=== PATIENT | female | born 1940 | race Caucasian/White ===

== ENCOUNTER 2022-06-19 09:09 | Outpatient (CLI) | payer MEDICARE | END 2022-06-19 09:10 | disposition home or self-care (01) | LOC: RAD 09:09 | PROVIDERS: ATTEND Internal Medicine Critical Care Medicine | DX: R06.00 Dyspnea, unspecified (principal); J84.9 Interstitial pulmonary disease, unspecified | CPT/HCPCS: 71046 ==

== ENCOUNTER 2023-10-07 16:35 | Inpatient (IN) | payer OTHER ==
[2023-10-07] MEDS ORDERED: Acetaminophen 325 MG TAB PO PRN (23:26)
[2023-10-07] MEDS ORDERED: Ondansetron PF 4 MG/2 ML Vial IVP PRN (23:26)
[2023-10-07] MEDS ORDERED: Labetalol HCl 100 MG/20 ML VIAL SLOW IVP PRN (23:26)
[2023-10-07] MEDS ORDERED: Ipratropium/Albuterol 3 ML NEB EZPAP PRN (23:29)
[2023-10-08] MEDS: cefTRIAXone\\ROCEPHIN 1 GM in Sodium Chloride 0.9% 100 ML IVPB SCH ×2 (00:19→23:39)
[2023-10-08 01:26] VITALS: BMI 22.7
[2023-10-08 05:31] LABS: #Basophils 0.1 thou/uL (0.0-0.2); #Eosinphils 0.1 thou/uL (0.0-0.7); #Monocytes 0.8 thou/uL (0.11-0.59); #Neutrophils 6.6 thou/uL (1.40-6.50); %Basophils 0.6 % (0.0-1.0); %Eosinophils 1.5 % (0.0-10.0); %Lymphocytes 10.1 % (21.0-51.0); %Monocytes 8.9 % (0.0-10.0); %Neutrophils 78.3 % (42.0-75.0); Hematocrit 34.3 % (36.0-47.0); Hemoglobin 10.8 g/dL (12.0-16.0); Mean Corpuscular HGB CONC 31.5 g/dL (32.0-36.0); Mean Corpuscular Hemoglobin 28.9 pg (27.0-31.0); Mean Corpuscular Volume 91.7 fl (78.0-98.0); Platelet Count 202 10x3/uL (130-400); RBC Distribution Width 15.2 % (11.5-14.5); Red Blood Cell (RBC) Count 3.74 mill/uL (4.20-5.40); White Blood Cell (WBC) Count 8.5 10x3/uL (4.8-10.8)
[2023-10-08 05:59] LABS: ALT (SGPT) 38 U/L (8-55); AST (SGOT) 28 U/L (5-34); Alkaline Phosphatase 86 U/L (40-110); Anion Gap 17 mmol/L (10-20); BUN (Urea Nitrogen) 16 mg/dL (9.8-20.1); Bilirubin, Total 0.6 mg/dL (0.2-1.2); Calc. Creatinine Clearance 53 mL/min (70-130); Calcium 9.5 mg/dL (7.8-10.44); Carbon Dioxide 19 mmol/L (23-31); Cardiac Risk 3.4 (Less than 4.5); Chloride 107 mmol/L (98-107); Cholesterol 124 mg/dl (< 200 Desired); Estimated GFR 81; Globulin 2.4 g/dL (2.4-3.5); Glucose 77 mg/dL (83-110); HDL Cholesterol 36 mg/dL (>60 Neg Risk); LDL Cholesterol, Calculated 61 mg/dL; Potassium 3.4 mmol/L (3.5-5.1); Protein, Total 6.4 g/dL (5.8-8.1); Sodium 140 mmol/L (136-145); Triglycerides 134 mg/dL (Less than 150)
[2023-10-08] MEDS ORDERED: FLU VACC QS2023(65UP)/MF59C/PF 60 MCG/0.5 ML SYRINGE IM ONE (09:00)
[2023-10-08] MEDS: dilTIAZem CD 120 MG CAP PO SCH (09:17)
[2023-10-08] MEDS: Aspirin 81 mg Enteric Coated Tablet PO SCH (09:17)
[2023-10-08] MEDS: Atorvastatin Calcium 40 MG TAB PO SCH (20:22)
[2023-10-09 05:32] LABS: #Basophils 0.1 thou/uL (0.0-0.2); #Eosinphils 0.3 thou/uL (0.0-0.7); #Monocytes 0.9 thou/uL (0.11-0.59); #Neutrophils 5.3 thou/uL (1.40-6.50); %Basophils 0.7 % (0.0-1.0); %Eosinophils 3.8 % (0.0-10.0); %Lymphocytes 12.4 % (21.0-51.0); %Monocytes 11.6 % (0.0-10.0); %Neutrophils 71.1 % (42.0-75.0); Hematocrit 36.2 % (36.0-47.0); Hemoglobin 11.7 g/dL (12.0-16.0); Mean Corpuscular HGB CONC 32.3 g/dL (32.0-36.0); Mean Corpuscular Volume 89.8 fl (78.0-98.0); Mean Platelet Volume 11.1 fL (7.4-10.4); Platelet Count 200 10x3/uL (130-400); RBC Distribution Width 15.4 % (11.5-14.5); Red Blood Cell (RBC) Count 4.03 mill/uL (4.20-5.40); White Blood Cell (WBC) Count 7.4 10x3/uL (4.8-10.8)
[2023-10-09 06:27] LABS: Albumin 3.8 g/dL (3.4-4.8); Alkaline Phosphatase 76 U/L (40-110); Anion Gap 13 mmol/L (10-20); Bilirubin, Total 0.5 mg/dL (0.2-1.2); Calc. Creatinine Clearance 47 mL/min (70-130); Calcium 9.1 mg/dL (7.8-10.44); Carbon Dioxide 22 mmol/L (23-31); Chloride 109 mmol/L (98-107); Estimated GFR 70; Globulin 2.4 g/dL (2.4-3.5); Glucose 105 mg/dL (83-110); Potassium 3.3 mmol/L (3.5-5.1); Protein, Total 6.2 g/dL (5.8-8.1); Sodium 141 mmol/L (136-145)
[2023-10-09] MEDS ORDERED: Potassium Bicarbonate/Cit Ac 20 MEQ TAB PO SCH (08:15)
[2023-10-09] MEDS: Aspirin 81 mg Enteric Coated Tablet PO SCH (08:50)
[2023-10-09] MEDS: Clopidogrel Bisulfate 75 MG TAB PO SCH (08:51)
[2023-10-09] MEDS: dilTIAZem CD 120 MG CAP PO SCH (08:51)
[2023-10-09 08:58] LABS: ALT (SGPT) 27 U/L (8-55); AST (SGOT) 19 U/L (5-34); BUN (Urea Nitrogen) 18 mg/dL (9.8-20.1)
[2023-10-09] MEDS ORDERED: Metoprolol Tartrate 25 MG TAB PO SCH (09:00)
[2023-10-09] MEDS ORDERED: Clopidogrel Bisulfate 75 MG TAB PO SCH (09:00)
[2023-10-09] MEDS ORDERED: Iopamidol 370 76% 100 ML VIAL ONE (11:05)
[2023-10-09] MEDS: hydrALAZINE 20 MG/ML VIAL SLOW IVP PRN (20:09)
[2023-10-09] MEDS: Atorvastatin Calcium 40 MG TAB PO SCH (20:16)
[2023-10-10] MEDS: cefTRIAXone\\ROCEPHIN 1 GM in Sodium Chloride 0.9% 100 ML IVPB SCH ×2 (00:20→23:37)
[2023-10-10] MEDS: hydrALAZINE 20 MG/ML VIAL SLOW IVP PRN ×3 (00:21→18:21)
[2023-10-10] MEDS ORDERED: Labetalol HCl 100 MG/20 ML VIAL SLOW IVP PRN (00:36)
[2023-10-10 04:57] LABS: #Basophils 0.1 thou/uL (0.0-0.2); #Eosinphils 0.2 thou/uL (0.0-0.7); #Monocytes 0.8 thou/uL (0.11-0.59); #Neutrophils 8.7 thou/uL (1.40-6.50); %Basophils 0.5 % (0.0-1.0); %Eosinophils 1.9 % (0.0-10.0); %Lymphocytes 5.5 % (21.0-51.0); %Monocytes 7.5 % (0.0-10.0); %Neutrophils 84.3 % (42.0-75.0); Hematocrit 36.8 % (36.0-47.0); Hemoglobin 11.9 g/dL (12.0-16.0); Mean Corpuscular HGB CONC 32.3 g/dL (32.0-36.0); Mean Corpuscular Volume 89.8 fl (78.0-98.0); Mean Platelet Volume 10.4 fL (7.4-10.4); Platelet Count 244 10x3/uL (130-400); RBC Distribution Width 15.6 % (11.5-14.5); White Blood Cell (WBC) Count 10.3 10x3/uL (4.8-10.8)
[2023-10-10 05:37] LABS: ALT (SGPT) 22 U/L (8-55); AST (SGOT) 16 U/L (5-34); Albumin 4.2 g/dL (3.4-4.8); Alkaline Phosphatase 77 U/L (40-110); Anion Gap 15 mmol/L (10-20); BUN (Urea Nitrogen) 19 mg/dL (9.8-20.1); Bilirubin, Total 0.6 mg/dL (0.2-1.2); Calc. Creatinine Clearance 46 mL/min (70-130); Calcium 9.9 mg/dL (7.8-10.44); Carbon Dioxide 22 mmol/L (23-31); Chloride 108 mmol/L (98-107); Estimated GFR 69; Globulin 2.3 g/dL (2.4-3.5); Glucose 122 mg/dL (83-110); Potassium 3.7 mmol/L (3.5-5.1); Protein, Total 6.5 g/dL (5.8-8.1); Sodium 141 mmol/L (136-145)
[2023-10-10] MEDS: Aspirin 81 mg Enteric Coated Tablet PO SCH (08:56)
[2023-10-10] MEDS: Clopidogrel Bisulfate 75 MG TAB PO SCH (08:56)
[2023-10-10] MEDS: dilTIAZem CD 120 MG CAP PO SCH (08:56)
[2023-10-10] MEDS: Metoprolol Tartrate 25 MG TAB PO SCH ×2 (10:29→20:04)
[2023-10-10] MEDS: Losartan 25 MG TAB PO SCH (10:31)
[2023-10-10] MEDS: Ranolazine 500 MG ER.TAB PO SCH ×2 (10:32→20:04)
[2023-10-10] MEDS: Atorvastatin Calcium 40 MG TAB PO SCH (20:04)
[2023-10-11] MEDS: hydrALAZINE 20 MG/ML VIAL SLOW IVP PRN (03:40)
[2023-10-11 03:58] LABS: #Basophils 0.1 thou/uL (0.0-0.2); #Eosinphils 0.5 thou/uL (0.0-0.7); #Neutrophils 7.4 thou/uL (1.40-6.50); %Basophils 0.6 % (0.0-1.0); %Eosinophils 4.5 % (0.0-10.0); %Lymphocytes 9.7 % (21.0-51.0); %Monocytes 10.2 % (0.0-10.0); %Neutrophils 74.7 % (42.0-75.0); Hematocrit 33.4 % (36.0-47.0); Hemoglobin 10.7 g/dL (12.0-16.0); Mean Corpuscular Volume 90.5 fl (78.0-98.0); Mean Platelet Volume 10.6 fL (7.4-10.4); Platelet Count 246 10x3/uL (130-400); RBC Distribution Width 15.9 % (11.5-14.5); Red Blood Cell (RBC) Count 3.69 mill/uL (4.20-5.40); White Blood Cell (WBC) Count 9.9 10x3/uL (4.8-10.8)
[2023-10-11 04:20] LABS: Anion Gap 15 mmol/L (10-20); BUN (Urea Nitrogen) 22 mg/dL (9.8-20.1); Calc. Creatinine Clearance 49 mL/min (70-130); Calcium 9.5 mg/dL (7.8-10.44); Carbon Dioxide 23 mmol/L (23-31); Chloride 108 mmol/L (98-107); Estimated GFR 74; Glucose 107 mg/dL (83-110); Potassium 3.7 mmol/L (3.5-5.1); Sodium 142 mmol/L (136-145)
[2023-10-11] MEDS: dilTIAZem CD 120 MG CAP PO SCH ×2 (09:26→20:05)
[2023-10-11] MEDS: Losartan 25 MG TAB PO SCH (09:26)
[2023-10-11] MEDS: Metoprolol Tartrate 25 MG TAB PO SCH ×2 (09:27→20:05)
[2023-10-11] MEDS: Ranolazine 500 MG ER.TAB PO SCH ×2 (09:27→20:05)
[2023-10-11] MEDS: Aspirin 81 mg Enteric Coated Tablet PO SCH (09:27)
[2023-10-11] MEDS: Clopidogrel Bisulfate 75 MG TAB PO SCH (09:27)
[2023-10-11] MEDS ORDERED: Lorazepam 0.5 MG TAB PO PRN (12:59)
[2023-10-11] MEDS: Atorvastatin Calcium 40 MG TAB PO SCH (20:05)
[2023-10-11] MEDS: cefTRIAXone\\ROCEPHIN 1 GM in Sodium Chloride 0.9% 100 ML IVPB SCH (22:15)
[2023-10-12 04:54] LABS: Anion Gap 11 mmol/L (10-20); BUN (Urea Nitrogen) 27 mg/dL (9.8-20.1); Calc. Creatinine Clearance 44 mL/min (70-130); Calcium 9.5 mg/dL (7.8-10.44); Carbon Dioxide 25 mmol/L (23-31); Chloride 107 mmol/L (98-107); Estimated GFR 66; Glucose 104 mg/dL (83-110); Magnesium 1.9 mg/dL (1.6-2.6); Potassium 3.9 mmol/L (3.5-5.1); Sodium 139 mmol/L (136-145)
[2023-10-12] MEDS: Sertraline 100 MG TAB PO SCH (09:05)
[2023-10-12] MEDS: Ranolazine 500 MG ER.TAB PO SCH ×2 (09:05→21:39)
[2023-10-12] MEDS: Losartan 25 MG TAB PO SCH (09:05)
[2023-10-12] MEDS: Clopidogrel Bisulfate 75 MG TAB PO SCH (09:06)
[2023-10-12] MEDS: dilTIAZem CD 120 MG CAP PO SCH ×2 (09:06→21:39)
[2023-10-12] MEDS: Metoprolol Tartrate 25 MG TAB PO SCH (09:07)
[2023-10-12] MEDS: Aspirin 81 mg Enteric Coated Tablet PO SCH (09:07)
[2023-10-12] MEDS: Hydrochlorothiazide 25 MG TAB PO SCH (11:01)
[2023-10-12] MEDS: Atorvastatin Calcium 40 MG TAB PO SCH (21:38)
[2023-10-13 03:48] LABS: #Basophils 0.1 thou/uL (0.0-0.2); #Eosinphils 0.6 thou/uL (0.0-0.7); #Monocytes 1.1 thou/uL (0.11-0.59); #Neutrophils 5.8 thou/uL (1.40-6.50); %Basophils 0.7 % (0.0-1.0); %Lymphocytes 15.1 % (21.0-51.0); %Monocytes 12.3 % (0.0-10.0); %Neutrophils 64.1 % (42.0-75.0); Hematocrit 28.5 % (36.0-47.0); Hemoglobin 9.4 g/dL (12.0-16.0); Mean Corpuscular Hemoglobin 29.6 pg (27.0-31.0); Mean Corpuscular Volume 89.6 fl (78.0-98.0); Mean Platelet Volume 10.6 fL (7.4-10.4); Platelet Count 218 10x3/uL (130-400); RBC Distribution Width 15.6 % (11.5-14.5); Red Blood Cell (RBC) Count 3.18 mill/uL (4.20-5.40); White Blood Cell (WBC) Count 9.1 10x3/uL (4.8-10.8)
[2023-10-13 04:13] LABS: Anion Gap 13 mmol/L (10-20); BUN (Urea Nitrogen) 37 mg/dL (9.8-20.1); Calc. Creatinine Clearance 40 mL/min (70-130); Calcium 9.4 mg/dL (7.8-10.44); Carbon Dioxide 24 mmol/L (23-31); Chloride 105 mmol/L (98-107); Estimated GFR 58; Glucose 98 mg/dL (83-110); Potassium 3.9 mmol/L (3.5-5.1); Sodium 138 mmol/L (136-145)
[2023-10-13] MEDS: Aspirin 81 mg Enteric Coated Tablet PO SCH (10:49)
[2023-10-13] MEDS: Ranolazine 500 MG ER.TAB PO SCH ×2 (10:50→20:54)
[2023-10-13] MEDS: Clopidogrel Bisulfate 75 MG TAB PO SCH (10:50)
[2023-10-13] MEDS: Hydrochlorothiazide 25 MG TAB PO SCH (10:50)
[2023-10-13] MEDS: Losartan 25 MG TAB PO SCH (10:50)
[2023-10-13] MEDS: Sertraline 100 MG TAB PO SCH (10:50)
[2023-10-13] MEDS: Atorvastatin Calcium 40 MG TAB PO SCH (20:54)
[2023-10-14 06:39] LABS: #Basophils 0.1 thou/uL (0.0-0.2); #Eosinphils 0.6 thou/uL (0.0-0.7); #Monocytes 0.8 thou/uL (0.11-0.59); #Neutrophils 7.2 thou/uL (1.40-6.50); %Basophils 0.6 % (0.0-1.0); %Eosinophils 5.5 % (0.0-10.0); %Lymphocytes 16.4 % (21.0-51.0); %Monocytes 7.7 % (0.0-10.0); %Neutrophils 69.2 % (42.0-75.0); Hematocrit 28.8 % (36.0-47.0); Hemoglobin 9.3 g/dL (12.0-16.0); Mean Corpuscular HGB CONC 32.3 g/dL (32.0-36.0); Mean Corpuscular Hemoglobin 29.2 pg (27.0-31.0); Mean Corpuscular Volume 90.6 fl (78.0-98.0); Mean Platelet Volume 10.6 fL (7.4-10.4); Platelet Count 231 10x3/uL (130-400); RBC Distribution Width 15.6 % (11.5-14.5); Red Blood Cell (RBC) Count 3.18 mill/uL (4.20-5.40); White Blood Cell (WBC) Count 10.4 10x3/uL (4.8-10.8)
[2023-10-14 07:12] LABS: Anion Gap 12 mmol/L (10-20); BUN (Urea Nitrogen) 32 mg/dL (9.8-20.1); Calc. Creatinine Clearance 43 mL/min (70-130); Calcium 9.6 mg/dL (7.8-10.44); Carbon Dioxide 24 mmol/L (23-31); Chloride 105 mmol/L (98-107); Estimated GFR 64; Glucose 110 mg/dL (83-110); Potassium 3.9 mmol/L (3.5-5.1); Sodium 137 mmol/L (136-145)
[2023-10-14] MEDS ORDERED: NIFEdipine XL 30 MG ER.TAB PO SCH (09:00)
[2023-10-14] MEDS: Sertraline 100 MG TAB PO SCH (09:35)
[2023-10-14] MEDS: Clopidogrel Bisulfate 75 MG TAB PO SCH (09:36)
[2023-10-14] MEDS: Ranolazine 500 MG ER.TAB PO SCH (09:36)
[2023-10-14] MEDS: Hydrochlorothiazide 25 MG TAB PO SCH (09:36)
[2023-10-14] MEDS: Aspirin 81 mg Enteric Coated Tablet PO SCH (09:36)
[2023-10-14] MEDS: Losartan 25 MG TAB PO SCH (09:37)
[2023-10-14 16:24] VITALS: BP 130/63; TEMP 97.5
== END 2023-10-14 17:45 | DRG 64 ==
LOC: 2SE 21:39 → OBSVTOIN 10-08 13:40
PROVIDERS: ADMIT Internal Medicine; ATTEND Internal Medicine
DX: I63.9 Cerebral infarction, unspecified (principal); E43 Unspecified severe protein-calorie malnutrition; G81.91 Hemiplegia, unspecified affecting right dominant side; N30.01 Acute cystitis with hematuria; I48.21 Permanent atrial fibrillation; I25.10 Atherosclerotic heart disease of native coronary artery without angina pectoris; I10 Essential (primary) hypertension; E78.5 Hyperlipidemia, unspecified; J44.9 Chronic obstructive pulmonary disease, unspecified; I95.1 Orthostatic hypotension; R00.1 Bradycardia, unspecified; E87.6 Hypokalemia; E03.9 Hypothyroidism, unspecified; F41.9 Anxiety disorder, unspecified; Z86.73 Personal history of transient ischemic attack (TIA), and cerebral infarction without residual deficits; Z79.899 Other long term (current) drug therapy; Z79.51 Long term (current) use of inhaled steroids; Z95.1 Presence of aortocoronary bypass graft; Z98.890 Other specified postprocedural states; Z87.891 Personal history of nicotine dependence
CPT/HCPCS: 36415; 70498; 70551; 74230; 80048; 80053; 80061; 82533; 83735; 84443; 85025; 90471; 90694; 93306; 93880; 96374; G0008; G0378; J0360; J0696; J3490; Q9967

== ENCOUNTER 2023-12-10 11:59 | Inpatient (IN) | payer MEDICARE, OTHER ==
[2023-12-10 12:53] LABS: #Eosinphils 0.1 thou/uL (0.0-0.7); #Monocytes 0.2 thou/uL (0.11-0.59); #Neutrophils 4.7 thou/uL (1.40-6.50); %Basophils 0.4 % (0.0-1.0); %Eosinophils 1.3 % (0.0-10.0); %Lymphocytes 8.7 % (21.0-51.0); %Monocytes 3.8 % (0.0-10.0); %Neutrophils 85.3 % (42.0-75.0); Hematocrit 27.3 % (36.0-47.0); Hemoglobin 8.4 g/dL (12.0-16.0); Mean Corpuscular HGB CONC 30.8 g/dL (32.0-36.0); Mean Corpuscular Hemoglobin 25.6 pg (27.0-31.0); Mean Corpuscular Volume 83.2 fl (78.0-98.0); Mean Platelet Volume 11.4 fL (7.4-10.4); Platelet Count 221 10x3/uL (130-400); RBC Distribution Width 17.3 % (11.5-14.5); Red Blood Cell (RBC) Count 3.28 mill/uL (4.20-5.40); White Blood Cell (WBC) Count 5.5 10x3/uL (4.8-10.8)
[2023-12-10 13:24] LABS: Troponin I Less than 0.010 ng/mL (< 0.028)
[2023-12-10 13:27] LABS: ALT (SGPT) 64 U/L (8-55); AST (SGOT) 57 U/L (5-34); Alkaline Phosphatase 94 U/L (40-110); Anion Gap 16 mmol/L (10-20); BUN (Urea Nitrogen) 12 mg/dL (9.8-20.1); Calc. Creatinine Clearance 0 mL/min (70-130); Calcium 9.2 mg/dL (7.8-10.44); Carbon Dioxide 23 mmol/L (23-31); Chloride 107 mmol/L (98-107); Estimated GFR 69; Globulin 2.7 g/dL (2.4-3.5); Glucose 125 mg/dL (83-110); Lipase 21 U/L (8-78); Magnesium 1.6 mg/dL (1.6-2.6); Potassium 3.5 mmol/L (3.5-5.1); Protein, Total 6.7 g/dL (5.8-8.1); Sodium 142 mmol/L (136-145)
[2023-12-10 13:53] LABS: SARS-CoV-2 NAA Rapid Test Not Detected (NotDetected)
[2023-12-10] MEDS ORDERED: Furosemide 40 MG (4 mL) VIAL ONE (14:53)
[2023-12-10] MEDS ORDERED: Ipratropium/Albuterol 3 ML NEB ONE (15:08)
[2023-12-10] MEDS ORDERED: Ondansetron PF 4 MG/2 ML Vial IVP PRN (15:09)
[2023-12-10] MEDS ORDERED: Acetaminophen 325 MG TAB PO PRN (15:09)
[2023-12-10] MEDS ORDERED: Guaifenesin DM 100-10/5 ML UDCUP PO PRN (15:09)
[2023-12-10] MEDS ORDERED: Magnesium 2 GM/50 ML(in water) 2 GM in Premix 1 BAG IVPB SCH (15:15)
[2023-12-10 17:12] VITALS: BMI 23.8
[2023-12-10] MEDS ORDERED: Famotidine 20 MG TAB PO SCH (21:00)
[2023-12-10] MEDS ORDERED: Carvedilol 6.25 MG TAB ONE (22:16)
[2023-12-10] MEDS ORDERED: Acetaminophen 325 MG TAB ONE (22:25)
[2023-12-10] MEDS ORDERED: Famotidine 20 MG TAB ONE (22:26)
[2023-12-10] MEDS: Carvedilol 3.125 MG TAB PO SCH (22:50)
[2023-12-10] MEDS: Icosapent Ethyl 1 GM CAPSULE PO SCH (22:50)
[2023-12-10] MEDS: Ranolazine 500 MG ER.TAB PO SCH (22:51)
[2023-12-10] MEDS: Senokot S 8.6-50 MG TAB PO SCH (22:51)
[2023-12-11 00:46] LABS: Troponin I Less than 0.010 ng/mL (< 0.028)
[2023-12-11 04:37] LABS: #Monocytes 0.6 thou/uL (0.11-0.59); #Neutrophils 4.5 thou/uL (1.40-6.50); %Basophils 0.2 % (0.0-1.0); %Lymphocytes 15.8 % (21.0-51.0); %Monocytes 9.6 % (0.0-10.0); %Neutrophils 74.1 % (42.0-75.0); Hematocrit 24.8 % (36.0-47.0); Hemoglobin 7.8 g/dL (12.0-16.0); Mean Corpuscular HGB CONC 31.5 g/dL (32.0-36.0); Mean Corpuscular Hemoglobin 25.5 pg (27.0-31.0); Mean Platelet Volume 11.1 fL (7.4-10.4); Platelet Count 220 10x3/uL (130-400); RBC Distribution Width 17.3 % (11.5-14.5); Red Blood Cell (RBC) Count 3.06 mill/uL (4.20-5.40); White Blood Cell (WBC) Count 6.1 10x3/uL (4.8-10.8)
[2023-12-11 05:11] LABS: Anion Gap 14 mmol/L (10-20); BUN (Urea Nitrogen) 17 mg/dL (9.8-20.1); Calc. Creatinine Clearance 44 mL/min (70-130); Calcium 8.8 mg/dL (7.8-10.44); Carbon Dioxide 26 mmol/L (23-31); Chloride 105 mmol/L (98-107); Estimated GFR 65; Glucose 111 mg/dL (83-110); Potassium 3.6 mmol/L (3.5-5.1); Sodium 141 mmol/L (136-145)
[2023-12-11] MEDS ORDERED: Furosemide 40 MG (4 mL) VIAL ONE (06:08)
[2023-12-11] MEDS: Levothyroxine Sodium 25 MCG TAB PO SCH (06:10)
[2023-12-11] MEDS: Furosemide 40 MG (4 mL) VIAL SLOW IVP SCH ×2 (06:10→15:14)
[2023-12-11] MEDS ORDERED: Enoxaparin 40 MG (0.4 mL) SYRINGE SC SCH (09:00)
[2023-12-11] MEDS ORDERED: Atorvastatin Calcium 40 MG TAB PO SCH (09:00)
[2023-12-11] MEDS ORDERED: Carvedilol 6.25 MG TAB ONE (09:34)
[2023-12-11] MEDS ORDERED: Sertraline 100 MG TAB ONE (09:39)
[2023-12-11] MEDS ORDERED: Losartan 25 MG TAB ONE (09:39)
[2023-12-11] MEDS ORDERED: Senokot S 8.6-50 MG TAB ONE ×2 (09:39→09:40)
[2023-12-11] MEDS ORDERED: Cholecalciferol 1,000 UNITS (25 MCG) TAB ONE (09:59)
[2023-12-11] MEDS: Icosapent Ethyl 1 GM CAPSULE PO SCH ×2 (10:04→17:18)
[2023-12-11] MEDS: Apixaban 2.5 MG TAB PO SCH ×2 (10:05→20:40)
[2023-12-11] MEDS: Losartan 25 MG TAB PO SCH (10:06)
[2023-12-11] MEDS: Cholecalciferol 1,000 UNITS (25 MCG) TAB PO SCH (10:06)
[2023-12-11] MEDS: Senokot S 8.6-50 MG TAB PO SCH ×2 (10:07→20:41)
[2023-12-11] MEDS: Sertraline 100 MG TAB PO SCH (10:07)
[2023-12-11] MEDS: Carvedilol 3.125 MG TAB PO SCH (10:10)
[2023-12-11] MEDS: Empagliflozin 10 MG TAB PO SCH (10:11)
[2023-12-11] MEDS: Fenofibrate Nanocrystallized 145 MG TAB PO SCH (10:16)
[2023-12-11] MEDS: Ranolazine 500 MG ER.TAB PO SCH ×2 (10:16→22:38)
[2023-12-11] MEDS: Montelukast Sodium 10 mg Tablet PO SCH (10:16)
[2023-12-11] MEDS: Spironolactone 25 MG TAB PO SCH (10:16)
[2023-12-11] MEDS: Famotidine 20 MG TAB PO SCH (20:40)
[2023-12-11] MEDS: Atorvastatin Calcium 40 MG TAB PO SCH (20:40)
[2023-12-12 04:40] LABS: #Eosinphils 0.3 thou/uL (0.0-0.7); #Monocytes 0.6 thou/uL (0.11-0.59); #Neutrophils 4.9 thou/uL (1.40-6.50); %Basophils 0.5 % (0.0-1.0); %Eosinophils 3.5 % (0.0-10.0); %Lymphocytes 26.8 % (21.0-51.0); %Monocytes 7.7 % (0.0-10.0); %Neutrophils 61.2 % (42.0-75.0); Hematocrit 27.7 % (36.0-47.0); Hemoglobin 8.5 g/dL (12.0-16.0); Mean Corpuscular HGB CONC 30.7 g/dL (32.0-36.0); Mean Corpuscular Hemoglobin 25.4 pg (27.0-31.0); Mean Corpuscular Volume 82.9 fl (78.0-98.0); Mean Platelet Volume 11.3 fL (7.4-10.4); Platelet Count 287 10x3/uL (130-400); RBC Distribution Width 17.8 % (11.5-14.5); Red Blood Cell (RBC) Count 3.34 mill/uL (4.20-5.40)
[2023-12-12 05:09] LABS: Anion Gap 15 mmol/L (10-20); BUN (Urea Nitrogen) 29 mg/dL (9.8-20.1); Calc. Creatinine Clearance 31 mL/min (70-130); Calcium 9.3 mg/dL (7.8-10.44); Carbon Dioxide 28 mmol/L (23-31); Chloride 101 mmol/L (98-107); Estimated GFR 44; Glucose 99 mg/dL (83-110); Potassium 3.3 mmol/L (3.5-5.1); Sodium 141 mmol/L (136-145)
[2023-12-12] MEDS: Levothyroxine Sodium 25 MCG TAB PO SCH (06:56)
[2023-12-12] MEDS ORDERED: Potassium Chloride 20 MEQ TAB PO SCH (09:00)
[2023-12-12] MEDS ORDERED: Furosemide 40 MG (4 mL) VIAL SLOW IVP SCH (09:00)
[2023-12-12] MEDS: Cholecalciferol 1,000 UNITS (25 MCG) TAB PO SCH (10:42)
[2023-12-12] MEDS: Ranolazine 500 MG ER.TAB PO SCH ×2 (10:43→20:20)
[2023-12-12] MEDS: Fenofibrate Nanocrystallized 145 MG TAB PO SCH (10:43)
[2023-12-12] MEDS: Icosapent Ethyl 1 GM CAPSULE PO SCH ×2 (10:43→18:06)
[2023-12-12] MEDS: Montelukast Sodium 10 mg Tablet PO SCH (10:43)
[2023-12-12] MEDS: Losartan 25 MG TAB PO SCH (10:43)
[2023-12-12] MEDS: Apixaban 2.5 MG TAB PO SCH ×2 (10:43→20:19)
[2023-12-12] MEDS: Spironolactone 25 MG TAB PO SCH (10:43)
[2023-12-12] MEDS: Sertraline 100 MG TAB PO SCH (10:43)
[2023-12-12] MEDS: Empagliflozin 10 MG TAB PO SCH (10:44)
[2023-12-12] MEDS: Senokot S 8.6-50 MG TAB PO SCH ×2 (10:48→20:20)
[2023-12-12] MEDS ORDERED: Midodrine HCl 5 MG TAB PO SCH (15:00)
[2023-12-12] MEDS: Famotidine 20 MG TAB PO SCH (20:20)
[2023-12-12] MEDS: Atorvastatin Calcium 40 MG TAB PO SCH (20:20)
[2023-12-13 05:12] LABS: Anion Gap 16 mmol/L (10-20); BUN (Urea Nitrogen) 39 mg/dL (9.8-20.1); Calc. Creatinine Clearance 26 mL/min (70-130); Calcium 8.8 mg/dL (7.8-10.44); Carbon Dioxide 23 mmol/L (23-31); Chloride 104 mmol/L (98-107); Estimated GFR 36; Glucose 106 mg/dL (83-110); Potassium 4.1 mmol/L (3.5-5.1); Sodium 139 mmol/L (136-145)
[2023-12-13] MEDS: Levothyroxine Sodium 25 MCG TAB PO SCH (05:20)
[2023-12-13] MEDS ORDERED: Sodium Chloride 0.9% 500 ML IV SCH (08:15)
[2023-12-13 08:24] VITALS: TEMP 97.8
[2023-12-13] MEDS ORDERED: Furosemide 20 MG TAB PO SCH (09:00)
[2023-12-13] MEDS: Cholecalciferol 1,000 UNITS (25 MCG) TAB PO SCH (10:27)
[2023-12-13] MEDS: Fenofibrate Nanocrystallized 145 MG TAB PO SCH (10:27)
[2023-12-13] MEDS: Ranolazine 500 MG ER.TAB PO SCH (10:27)
[2023-12-13] MEDS: Icosapent Ethyl 1 GM CAPSULE PO SCH (10:27)
[2023-12-13] MEDS: Montelukast Sodium 10 mg Tablet PO SCH (10:27)
[2023-12-13] MEDS: Sertraline 100 MG TAB PO SCH (10:28)
[2023-12-13] MEDS: Empagliflozin 10 MG TAB PO SCH (10:28)
[2023-12-13] MEDS: Apixaban 2.5 MG TAB PO SCH (10:28)
[2023-12-13] MEDS: Senokot S 8.6-50 MG TAB PO SCH (10:30)
[2023-12-13 12:01] VITALS: BP 95/51
[2023-12-13 14:08] LABS: Anion Gap 13 mmol/L (10-20); BUN (Urea Nitrogen) 34 mg/dL (9.8-20.1); Calc. Creatinine Clearance 29 mL/min (70-130); Calcium 9.1 mg/dL (7.8-10.44); Carbon Dioxide 25 mmol/L (23-31); Chloride 107 mmol/L (98-107); Estimated GFR 42; Glucose 95 mg/dL (83-110); Potassium 4.2 mmol/L (3.5-5.1); Sodium 141 mmol/L (136-145)
[2023-12-13] MEDS ORDERED: Famotidine 20 MG TAB PO SCH (21:00)
== END 2023-12-13 15:30 | disposition home or self-care (01) | DRG 291 ==
LOC: ERS 11:59 → ERHOLD 14:56 → 2NO 12-11 14:55
PROVIDERS: ADMIT Internal Medicine; ATTEND Nurse Practitioner Family
DX: I13.0 Hypertensive heart and chronic kidney disease with heart failure and stage 1 through stage 4 chronic kidney disease, or unspecified chronic kidney disease (principal); I50.33 Acute on chronic diastolic (congestive) heart failure; E78.5 Hyperlipidemia, unspecified; E11.9 Type 2 diabetes mellitus without complications
CPT/HCPCS: 36415; 36416; 71045; 80048; 80053; 83690; 83735; 83880; 84443; 84484; 85025; 93005; 93923; 94640; 94760; 97139; J1940; J3475; J7030; J7620

== ENCOUNTER 2024-06-17 10:29 | Outpatient (CLI) | payer OTHER ==
[2024-06-17 11:42] LABS: Hematocrit 30.8 % (34.9-44.5); Mean Corpuscular HGB CONC 29.2 g/dL (32.0-36.0); Mean Corpuscular Hemoglobin 21.7 pg (27.0-33.0); Mean Corpuscular Volume 74.4 fL (81.6-98.3); Mean Platelet Volume 10.5 fL (7.4-10.4); Platelet Count 289 10x3/uL (150-450); Red Blood Cell (RBC) Count 4.14 10x6/uL (3.90-5.03); White Blood Cell (WBC) Count 6.9 10x3/uL (3.5-10.5)
[2024-06-17 12:01] LABS: Anion Gap 13 mmol/L (10-20); BUN (Urea Nitrogen) 16 mg/dL (9.8-20.1); Calc. Creatinine Clearance 0 mL/min (70-130); Calcium 9.7 mg/dL (7.8-10.44); Carbon Dioxide 24 mmol/L (23-31); Chloride 108 mmol/L (98-107); Estimated GFR 67; Glucose 99 mg/dL (83-110); Potassium 3.6 mmol/L (3.5-5.1); Sodium 141 mmol/L (136-145)
== END 2024-06-17 10:30 | disposition home or self-care (01) ==
LOC: LABBT 10:29
PROVIDERS: ATTEND Thoracic Surgery (Cardiothoracic Vascular Surgery)
DX: Z01.812 Encounter for preprocedural laboratory examination (principal); I65.22 Occlusion and stenosis of left carotid artery
CPT/HCPCS: 80048; 85027

== ENCOUNTER 2024-06-17 10:30 | Inpatient (IN) | payer OTHER ==
[2024-06-18] MEDS ORDERED: Heparin 5,000 UNITS/ML VIAL ONE (06:46)
[2024-06-18] MEDS ORDERED: EPINEPHrine 1 MG/ML VIAL ONE (06:47)
[2024-06-18] MEDS ORDERED: Bupivacaine PF 0.5% 30 ML VIAL ONE (06:47)
[2024-06-18] MEDS ORDERED: CEFAZOLIN 2 GM VIAL ONE (07:27)
[2024-06-18] MEDS ORDERED: Sodium Chloride 0.9% 100 ML ONE (07:28)
[2024-06-18] MEDS ORDERED: fentaNYL PF 100 MCG/2 ML SYRINGE ONE (07:32)
[2024-06-18] MEDS ORDERED: PROPOFOL 20 ML ONE (07:33)
[2024-06-18] MEDS ORDERED: Lidocaine 2% PF 5 ML VIAL ONE ×2 (07:37)
[2024-06-18] MEDS ORDERED: Rocuronium Bromide 10 MG/ML (10ML VIAL) ONE (07:47)
[2024-06-18] MEDS ORDERED: Heparin 10,000 UNITS/ 10 ML VIAL ONE (08:14)
[2024-06-18] MEDS ORDERED: Ondansetron PF 4 MG/2 ML Vial ONE (08:42)
[2024-06-18] MEDS ORDERED: Protamine Sulfate 50 MG/5 ML VIAL ONE (08:42)
[2024-06-18] MEDS ORDERED: NEOSTIGMINE 3 MG/3 ML SYRINGE ONE (08:57)
[2024-06-18] MEDS ORDERED: Glycopyrrolate 0.2 MG/ML 5 ML SYRINGE ONE (08:57)
[2024-06-18] MEDS ORDERED: Albuterol 200 PUFF (6.7GM INHALER) INH PRN (09:11)
[2024-06-18] MEDS ORDERED: Ondansetron PF 4 MG/2 ML Vial IVP PRN (09:11)
[2024-06-18] MEDS ORDERED: Nitroglycerin 50 MG/250 ML BOT 250 ML IVPB PRN (09:11)
[2024-06-18] MEDS ORDERED: Ipratropium/Albuterol 3 ML NEB NEB PRN (09:11)
[2024-06-18] MEDS ORDERED: traMADol HCl 50 MG TAB PO PRN (09:11)
[2024-06-18] MEDS ORDERED: Insulin Regular, Human 100 UNIT/ML 10 ML VIAL SC PRN (09:11)
[2024-06-18] MEDS ORDERED: hydrALAZINE 20 MG/ML VIAL SLOW IVP PRN (09:11)
[2024-06-18] MEDS ORDERED: Phenylephrine 40 MG in Sodium Chloride 0.9% 250 ML 250 ML IVPB PRN (09:11)
[2024-06-18] MEDS ORDERED: fentaNYL 50 mcg/mL 1 mL Vial SLOW IVP PRN (09:11)
[2024-06-18] MEDS ORDERED: Albuterol 2.5 MG (0.5 mL) NEB ONE (09:17)
[2024-06-18] MEDS ORDERED: Promethazine HCl 25 MG/ML VIAL IM PRN (09:23)
[2024-06-18] MEDS ORDERED: Ondansetron HCl/PF 4 MG/2 ML Vial IVP PRN (09:23)
[2024-06-18] MEDS ORDERED: fentaNYL 50 mcg/mL 1 mL Vial ONE ×2 (09:51→10:18)
[2024-06-18] MEDS: CEFAZOLIN 2 GM in Sodium Chloride 0.9% 100 ML IVPB SCH (13:25)
[2024-06-18] MEDS: Sodium Chloride 0.9% 1,000 ML IV SCH (13:25)
[2024-06-18 13:33] VITALS: BMI 22.0
[2024-06-18] MEDS: Ipratropium/Albuterol 3 ML NEB NEB SCH (14:25)
[2024-06-18] MEDS: Icosapent Ethyl 1 GM CAPSULE PO SCH (16:53)
[2024-06-18] MEDS ORDERED: Non-Formulary Item 1 EACH (Icosapent Ethyl 1 GM Capsule) PO SCH (17:00)
[2024-06-18] MEDS: Acetaminophen 325 MG TAB PO PRN (17:31)
[2024-06-18] MEDS: Atorvastatin Calcium 40 MG TAB PO SCH (20:11)
[2024-06-19] MEDS ORDERED: Levothyroxine Sodium 25 MCG TAB PO SCH (09:00)
[2024-06-19] MEDS ORDERED: Non-Formulary Item 1 EACH (Atorvastatin Calcium [Atorvastatin Calcium] 80 MG Tablet) PO SCH (09:00)
[2024-06-19] MEDS ORDERED: Empagliflozin 10 MG TAB PO SCH (09:00)
[2024-06-19] MEDS ORDERED: Losartan 25 MG TAB PO SCH (09:00)
[2024-06-19] MEDS ORDERED: Aspirin Chewable 81 MG TAB PO SCH (09:00)
[2024-06-19] MEDS ORDERED: NIFEdipine XL 30 MG ER.TAB PO SCH (09:00)
[2024-06-19] MEDS ORDERED: Non-Formulary Item 1 EACH (Losartan Potassium [Losartan Potassium] 100 MG Tablet) PO SCH (09:00)
[2024-06-19] MEDS ORDERED: Sertraline 100 MG TAB PO SCH (09:00)
[2024-06-19] MEDS ORDERED: Pantoprazole DR 40 MG TAB PO SCH (09:00)
[2024-06-19 13:29] VITALS: TEMP 98
[2024-06-19] MEDS ORDERED: Apixaban 2.5 MG TAB PO SCH (21:00)
== END 2024-06-19 11:45 | disposition home or self-care (01) | DRG 38 ==
LOC: SURG A 06-18 05:51 → EDSTATUS 06-18 10:30 → CCU 06-18 12:41
PROVIDERS: ADMIT Thoracic Surgery (Cardiothoracic Vascular Surgery); ATTEND Thoracic Surgery (Cardiothoracic Vascular Surgery)
PROC: 03CL0ZZ Extirpation of Matter from Left Internal Carotid Artery, Open Approach (ICD-10-PCS; principal; 2024-06-18)
PROC: 03UL0KZ Supplement Left Internal Carotid Artery with Nonautologous Tissue Substitute, Open Approach (ICD-10-PCS; 2024-06-18)
PROC: 3E033XZ Introduction of Vasopressor into Peripheral Vein, Percutaneous Approach (ICD-10-PCS; 2024-06-18)
DX: I65.23 Occlusion and stenosis of bilateral carotid arteries (principal); I48.21 Permanent atrial fibrillation; Z79.899 Other long term (current) drug therapy; Z79.01 Long term (current) use of anticoagulants; F41.9 Anxiety disorder, unspecified; E78.5 Hyperlipidemia, unspecified; I10 Essential (primary) hypertension; I25.10 Atherosclerotic heart disease of native coronary artery without angina pectoris; Z98.890 Other specified postprocedural states; Z87.891 Personal history of nicotine dependence; Z88.8 Allergy status to other drugs, medicaments and biological substances; Z86.73 Personal history of transient ischemic attack (TIA), and cerebral infarction without residual deficits
CPT/HCPCS: 36416; 94640; C1768; J0171; J0665; J1642; J1644; J2001; J2405; J2704; J2720; J3010; J3490; J7050; J7611; J7620

== ENCOUNTER 2024-06-19 22:46 | Inpatient (IN) | payer OTHER ==
[~2024-06-19 22:46] MED LIST: Iopamidol-370 76% 500 ML MDV (1 ML CHARGE) ONE
[2024-06-19 23:24] LABS: #Basophils Less than 0.03 10x3/uL (0.0-0.2); #Eosinphils Less than 0.03 10x3/uL (0.0-0.7); %Basophils 0.2 % (0.0-1.0); %Lymphocytes 4.4 % (21.0-51.0); %Monocytes 10.3 % (0.0-10.0); %Neutrophils 84.6 % (42.0-75.0); Hematocrit 26.5 % (36.0-47.0); Hemoglobin 7.8 g/dL (12.0-16.0); Mean Corpuscular HGB CONC 29.4 g/dL (32.0-36.0); Mean Corpuscular Hemoglobin 22.4 pg (27.0-31.0); Mean Corpuscular Volume 76.1 fL (78.0-98.0); Mean Platelet Volume 11.4 fL (7.4-10.4); Platelet Count 243 10x3/uL (130-400); RBC Distribution Width 19.3 % (11.5-14.5); Red Blood Cell (RBC) Count 3.48 mill/uL (4.20-5.40)
[2024-06-19 23:31] LABS: ALT (SGPT) 77 U/L (8-55); AST (SGOT) 231 U/L (5-34); Albumin 3.2 g/dL (3.4-4.8); Alkaline Phosphatase 216 U/L (40-110); Anion Gap 13 mmol/L (10-20); BUN (Urea Nitrogen) 24 mg/dL (9.8-20.1); Bilirubin, Total 0.9 mg/dL (0.2-1.2); Calc. Creatinine Clearance 0 mL/min (70-130); Calcium 8.6 mg/dL (7.8-10.44); Carbon Dioxide 19 mmol/L (23-31); Chloride 111 mmol/L (98-107); Estimated GFR 40; Globulin 2.2 g/dL (2.4-3.5); Glucose 142 mg/dL (83-110); Magnesium 2.2 mg/dL (1.6-2.6); Potassium 3.7 mmol/L (3.5-5.1); Protein, Total 5.4 g/dL (5.8-8.1); Sodium 139 mmol/L (136-145)
[2024-06-19 23:32] LABS: Actual Bicarbonate (HCO3a) 20.4 mEq/L (22-28); Base Excess (BEa) -4.3 mEq/L (-2.0 to +3.0); CO2 Tension 35.6 mmHg (35.0-45.0); Calcium, Ionized (arterial) 1.17 mmol/L (1.12-1.30); Carboxyhemoglobin (COHb) 1.7 gm% (0.0-3.0); Hematocrit-ABG 23 % (36.0-47.0); Hemoglobin (Hb) 7.8 g/dL (12.0-16.0); O2 Tension (PaO2), arterial 154.4 mmHg (> 60.0); Potassium - ABG Lab 3.64 mmol/L (3.70-5.30); pH, Arterial 7.376 (7.35-7.45)
[2024-06-19 23:33] LABS: Puncture Site LB
[2024-06-19 23:42] LABS: Troponin I 0.599 ng/mL (< 0.028)
[2024-06-20 00:10] LABS: Bacteria/HPF None Seen HPF (None Seen); Bilirubin Negative (Negative); Blood, Urine Negative (Negative); CAUTI Indications for Culture Alt mental st,lethar; Clarity Clear (Clear); Glucose, Urine (Dipstick) Greater than 1000 mg/dL (Negative); Ketone, Urine Trace mg/dL (Negative); Leukocyte 250 Leu/uL (Negative); Nitrite Negative (Negative); Protein, Urine (Dipstick) 10 mg/dL (Neg-Trace); RBC/HPF 0-3 HPF (0-3); Squamous Epithelial 0-3 HPF (0-3); Urobilinogen Normal mg/dL (Less than 2); WBC/HPF 21-50 HPF (0-3); pH, Urine 5.5 (5.0-9.0)
[2024-06-20 00:12] LABS: Urine Culture Reflex Yes Yes
[2024-06-20] MEDS ORDERED: Sodium Chloride 0.9% 100 ML ONE (00:30)
[2024-06-20] MEDS ORDERED: cefTRIAXone (ROCEPHIN) 1 GM VIAL ONE (00:30)
[2024-06-20] MEDS ORDERED: Ondansetron PF 4 MG/2 ML Vial IVP PRN (00:45)
[2024-06-20] MEDS ORDERED: Ondansetron ODT 4 MG TAB SL PRN (00:45)
[2024-06-20] MEDS ORDERED: Acetaminophen 650 MG Suppository PR PRN (01:02)
[2024-06-20] MEDS ORDERED: Dextrose 50% Abboject 50 ML SYRINGE SLOW IVP PRN (02:08)
[2024-06-20] MEDS ORDERED: Glucagon 1 MG/ML KIT IM PRN (02:08)
[2024-06-20] MEDS ORDERED: Dextrose 5% in Water 1,000 ML IV PRN (02:08)
[2024-06-20] MEDS: Furosemide 20 MG (2 mL) VIAL SLOW IVP SCH (02:11)
[2024-06-20 02:20] VITALS: BMI 23.3
[2024-06-20 03:43] LABS: #Basophils 0.03 10x3/uL (0.0-0.2); #Eosinphils Less than 0.03 10x3/uL (0.0-0.7); %Basophils 0.3 % (0.0-1.0); %Lymphocytes 7.4 % (21.0-51.0); %Monocytes 9.5 % (0.0-10.0); %Neutrophils 82.3 % (42.0-75.0); Hematocrit 28.1 % (36.0-47.0); Hemoglobin 8.1 g/dL (12.0-16.0); Mean Corpuscular HGB CONC 28.8 g/dL (32.0-36.0); Mean Corpuscular Volume 76.4 fL (78.0-98.0); Platelet Count 225 10x3/uL (130-400); Red Blood Cell (RBC) Count 3.68 mill/uL (4.20-5.40)
[2024-06-20 03:45] LABS: Hemoglobin A1c 5.4 % (4.0-6.0)
[2024-06-20 03:50] LABS: ALT (SGPT) 64 U/L (8-55); AST (SGOT) 195 U/L (5-34); Albumin 3.1 g/dL (3.4-4.8); Alkaline Phosphatase 218 U/L (40-110); Anion Gap 11 mmol/L (10-20); BUN (Urea Nitrogen) 22 mg/dL (9.8-20.1); Bilirubin, Total 0.7 mg/dL (0.2-1.2); Calc. Creatinine Clearance 32 mL/min (70-130); Calcium 8.9 mg/dL (7.8-10.44); Carbon Dioxide 20 mmol/L (23-31); Cardiac Risk 2.7 (Less than 4.5); Chloride 110 mmol/L (98-107); Cholesterol 95 mg/dl (< 200 Desired); Estimated GFR 45; Globulin 2.7 g/dL (2.4-3.5); Glucose 129 mg/dL (83-110); HDL Cholesterol 35 mg/dL (>60 Neg Risk); Iron 10 ug/dL (50-170); Iron 11 ug/dL (50-170); Iron Binding Capacity, Total 336 mcg/dL (265-497); Iron Binding Capacity, Total 344 mcg/dL (265-497); LDL Cholesterol, Calculated 41 mg/dL; Potassium 3.6 mmol/L (3.5-5.1); Protein, Total 5.8 g/dL (5.8-8.1); Sodium 137 mmol/L (136-145); Triglycerides 97 mg/dL (Less than 150)
[2024-06-20 04:02] LABS: Troponin I 1.544 ng/mL (< 0.028)
[2024-06-20 08:12] LABS: Critical Call Chem Troponin I NUR.PLF@0815t; Troponin I 1.805 ng/mL (< 0.028)
[2024-06-20] MEDS ORDERED: Furosemide 20 MG (2 mL) VIAL SLOW IVP SCH (09:00)
[2024-06-20] MEDS: Aspirin 300 MG Suppository PR SCH (09:32)
[2024-06-20] MEDS: Pantoprazole 40 MG VIAL IVP SCH (09:32)
[2024-06-21 04:18] LABS: #Basophils 0.03 10x3/uL (0.0-0.2); %Basophils 0.3 % (0.0-1.0); %Eosinophils 0.5 % (0.0-10.0); %Lymphocytes 6.3 % (21.0-51.0); %Monocytes 8.7 % (0.0-10.0); %Neutrophils 83.8 % (42.0-75.0); Hematocrit 27.4 % (36.0-47.0); Hemoglobin 7.8 g/dL (12.0-16.0); Mean Corpuscular HGB CONC 28.5 g/dL (32.0-36.0); Mean Corpuscular Hemoglobin 21.4 pg (27.0-31.0); Mean Corpuscular Volume 75.3 fL (78.0-98.0); Mean Platelet Volume 10.8 fL (7.4-10.4); Platelet Count 192 10x3/uL (130-400); RBC Distribution Width 19.4 % (11.5-14.5); Red Blood Cell (RBC) Count 3.64 mill/uL (4.20-5.40)
[2024-06-21 04:35] LABS: ALT (SGPT) 37 U/L (8-55); AST (SGOT) 98 U/L (5-34); Alkaline Phosphatase 161 U/L (40-110); Anion Gap 17 mmol/L (10-20); BUN (Urea Nitrogen) 19 mg/dL (9.8-20.1); Bilirubin, Total 0.5 mg/dL (0.2-1.2); Calc. Creatinine Clearance 50 mL/min (70-130); Calcium 9.2 mg/dL (7.8-10.44); Carbon Dioxide 18 mmol/L (23-31); Chloride 112 mmol/L (98-107); Estimated GFR 77; Globulin 2.5 g/dL (2.4-3.5); Glucose 88 mg/dL (83-110); Potassium 3.7 mmol/L (3.5-5.1); Protein, Total 5.5 g/dL (5.8-8.1); Sodium 143 mmol/L (136-145)
[2024-06-21] MEDS: hydrALAZINE 20 MG/ML VIAL SLOW IVP PRN (08:11)
[2024-06-21] MEDS: Labetalol HCl 100 MG/20 ML VIAL SLOW IVP PRN (10:05)
[2024-06-21] MEDS: Dextrose 5%-Lactated Ringers 1,000 ML IV SCH (14:58)
[2024-06-22 06:36] LABS: #Basophils Less than 0.03 10x3/uL (0.0-0.2); #Eosinphils Less than 0.03 10x3/uL (0.0-0.7); %Basophils 0.1 % (0.0-1.0); %Lymphocytes 5.1 % (21.0-51.0); %Monocytes 10.4 % (0.0-10.0); %Neutrophils 83.9 % (42.0-75.0); Hematocrit 25.3 % (36.0-47.0); Hemoglobin 7.3 g/dL (12.0-16.0); Mean Corpuscular HGB CONC 28.9 g/dL (32.0-36.0); Mean Corpuscular Hemoglobin 21.9 pg (27.0-31.0); Mean Corpuscular Volume 75.7 fL (78.0-98.0); Mean Platelet Volume 10.2 fL (7.4-10.4); Platelet Count 210 10x3/uL (130-400); RBC Distribution Width 19.6 % (11.5-14.5); Red Blood Cell (RBC) Count 3.34 mill/uL (4.20-5.40)
[2024-06-22 06:54] LABS: ALT (SGPT) 31 U/L (8-55); AST (SGOT) 48 U/L (5-34); Albumin 2.9 g/dL (3.4-4.8); Alkaline Phosphatase 138 U/L (40-110); Anion Gap 14 mmol/L (10-20); BUN (Urea Nitrogen) 20 mg/dL (9.8-20.1); Bilirubin, Total 0.7 mg/dL (0.2-1.2); Calc. Creatinine Clearance 42 mL/min (70-130); Calcium 9.7 mg/dL (7.8-10.44); Carbon Dioxide 21 mmol/L (23-31); Chloride 116 mmol/L (98-107); Estimated GFR 67; Globulin 2.8 g/dL (2.4-3.5); Glucose 152 mg/dL (83-110); Potassium 3.3 mmol/L (3.5-5.1); Protein, Total 5.7 g/dL (5.8-8.1); Sodium 148 mmol/L (136-145)
[2024-06-22] MEDS: Atorvastatin Calcium 40 MG TAB PO SCH (22:51)
[2024-06-23] MEDS: Aspirin Chewable 81 MG TAB PO SCH (07:35)
[2024-06-24 06:15] LABS: #Basophils Less than 0.03 10x3/uL (0.0-0.2); %Basophils 0.3 % (0.0-1.0); %Eosinophils 0.6 % (0.0-10.0); %Lymphocytes 10.6 % (21.0-51.0); %Monocytes 7.6 % (0.0-10.0); %Neutrophils 80.1 % (42.0-75.0); Hematocrit 25.9 % (36.0-47.0); Hemoglobin 7.4 g/dL (12.0-16.0); Mean Corpuscular HGB CONC 28.6 g/dL (32.0-36.0); Mean Corpuscular Hemoglobin 21.4 pg (27.0-31.0); Mean Corpuscular Volume 74.9 fL (78.0-98.0); Mean Platelet Volume 10.4 fL (7.4-10.4); Platelet Count 250 10x3/uL (130-400); Red Blood Cell (RBC) Count 3.46 mill/uL (4.20-5.40)
[2024-06-24 06:38] LABS: Anion Gap 12 mmol/L (10-20); BUN (Urea Nitrogen) 24 mg/dL (9.8-20.1); Calc. Creatinine Clearance 58 mL/min (70-130); Calcium 9.9 mg/dL (7.8-10.44); Carbon Dioxide 25 mmol/L (23-31); Chloride 121 mmol/L (98-107); Estimated GFR 86; Glucose 131 mg/dL (83-110); Potassium 3.4 mmol/L (3.5-5.1); Sodium 155 mmol/L (136-145)
[2024-06-24] MEDS: Dextrose 5% in Water 1,000 ML IV SCH (09:18)
[2024-06-25 04:48] LABS: #Basophils 0.03 10x3/uL (0.0-0.2); %Basophils 0.4 % (0.0-1.0); %Eosinophils 2.6 % (0.0-10.0); %Lymphocytes 12.6 % (21.0-51.0); %Neutrophils 75.5 % (42.0-75.0); Hematocrit 25.9 % (36.0-47.0); Hemoglobin 7.4 g/dL (12.0-16.0); Mean Corpuscular HGB CONC 28.6 g/dL (32.0-36.0); Mean Corpuscular Volume 76.9 fL (78.0-98.0); Mean Platelet Volume 10.8 fL (7.4-10.4); Platelet Count 254 10x3/uL (130-400); Red Blood Cell (RBC) Count 3.37 mill/uL (4.20-5.40)
[2024-06-25 05:05] LABS: Anion Gap 11 mmol/L (10-20); BUN (Urea Nitrogen) 19 mg/dL (9.8-20.1); Calc. Creatinine Clearance 61 mL/min (70-130); Calcium 9.4 mg/dL (7.8-10.44); Carbon Dioxide 23 mmol/L (23-31); Chloride 116 mmol/L (98-107); Estimated GFR 87; Glucose 114 mg/dL (83-110); Potassium 3.2 mmol/L (3.5-5.1); Sodium 147 mmol/L (136-145)
[2024-06-25] MEDS: Potassium Chloride 20 MEQ in Premix 1 BAG IVPB SCH (08:53)
[2024-06-25] MEDS: Ipratropium/Albuterol 3 ML NEB EZPAP PRN (09:47)
[2024-06-25] MEDS: Ipratropium/Albuterol 3 ML NEB EZPAP SCH (17:49)
[2024-06-26 04:27] LABS: #Basophils 0.04 10x3/uL (0.0-0.2); %Basophils 0.5 % (0.0-1.0); %Eosinophils 2.8 % (0.0-10.0); %Lymphocytes 12.7 % (21.0-51.0); %Monocytes 9.4 % (0.0-10.0); %Neutrophils 73.8 % (42.0-75.0); Hematocrit 24.7 % (36.0-47.0); Hemoglobin 7.2 g/dL (12.0-16.0); Mean Corpuscular HGB CONC 29.1 g/dL (32.0-36.0); Mean Corpuscular Hemoglobin 21.7 pg (27.0-31.0); Mean Corpuscular Volume 74.4 fL (78.0-98.0); Mean Platelet Volume 10.8 fL (7.4-10.4); Platelet Count 229 10x3/uL (130-400); RBC Distribution Width 19.8 % (11.5-14.5); Red Blood Cell (RBC) Count 3.32 mill/uL (4.20-5.40)
[2024-06-26 04:42] LABS: Anion Gap 9 mmol/L (10-20); BUN (Urea Nitrogen) 15 mg/dL (9.8-20.1); Calc. Creatinine Clearance 63 mL/min (70-130); Calcium 9.1 mg/dL (7.8-10.44); Carbon Dioxide 23 mmol/L (23-31); Chloride 109 mmol/L (98-107); Estimated GFR 87; Glucose 123 mg/dL (83-110); Potassium 3.3 mmol/L (3.5-5.1); Sodium 138 mmol/L (136-145)
[2024-06-26] MEDS ORDERED: Lidocaine 1% PF 5 ML VIAL ONE (07:16)
[2024-06-26] MEDS ORDERED: PROPOFOL 20 ML ONE ×2 (07:16→08:36)
[2024-06-26] MEDS ORDERED: hydrALAZINE 20 MG/ML VIAL ONE (08:13)
[2024-06-26] MEDS ORDERED: PHENYLEPHRINE-NS 100 MCG/ML 10 ML SYRINGE ONE (08:38)
[2024-06-26] MEDS ORDERED: Clindamycin/D5W 900 mg/50 ml Premix Bag ONE (09:51)
[2024-06-26] MEDS ORDERED: LevoFLOXacin D5W 500 mg (100 mL) BAG ONE (09:51)
[2024-06-26] MEDS ORDERED: Ipratropium/Albuterol 3 ML NEB ONE (10:09)
[2024-06-26] MEDS: Potassium Chloride 20 MEQ in Premix 1 BAG IVPB SCH (10:49)
[2024-06-26 12:28] VITALS: BMI 24.7
[2024-06-26] MEDS: Icosapent Ethyl 1 GM CAPSULE FS SCH (16:41)
[2024-06-26] MEDS: Ipratropium/Albuterol 3 ML NEB NEB SCH (16:46)
[2024-06-26] MEDS: methylPREDNISolone Sod Succ 40 MG VIAL IVP SCH (22:50)
[2024-06-26] MEDS: Acetaminophen 325 MG TAB PER TUBE PRN (22:51)
[2024-06-27] MEDS: Levothyroxine Sodium 25 MCG TAB PO SCH (05:39)
[2024-06-27 07:49] LABS: Hematocrit 25.9 % (36.0-47.0); Hemoglobin 7.7 g/dL (12.0-16.0); Mean Corpuscular HGB CONC 29.7 g/dL (32.0-36.0); Mean Corpuscular Hemoglobin 22.2 pg (27.0-31.0); Mean Corpuscular Volume 74.6 fL (78.0-98.0); Platelet Count 250 10x3/uL (130-400); Red Blood Cell (RBC) Count 3.47 mill/uL (4.20-5.40)
[2024-06-27 08:00] LABS: Anion Gap 12 mmol/L (10-20); BUN (Urea Nitrogen) 10 mg/dL (9.8-20.1); Calc. Creatinine Clearance 59 mL/min (70-130); Carbon Dioxide 22 mmol/L (23-31); Chloride 106 mmol/L (98-107); Estimated GFR 85; Glucose 204 mg/dL (83-110); Potassium 3.8 mmol/L (3.5-5.1); Sodium 136 mmol/L (136-145)
[2024-06-27 08:17] LABS: Band 8 % (5-11); Burr Cells SLIGHT = 2-5 cells HPF (0-1); Elliptocytes SLIGHT = 2-5 cells HPF (0-1); Eosinophils 1 % (0-10); Macrocytosis SLIGHT = 6-15 cells HPF (0-5); Monocytes 1 % (0-10); Neutrophil 90 % (42-75); Platelet Adequacy Comment Platelets Normal; Polychromasia SLIGHT = 2-3 cells HPF (0-2)
[2024-06-27] MEDS: Sertraline 100 MG TAB PO SCH (08:55)
[2024-06-27] MEDS: Pantoprazole DR 40 MG TAB PO SCH (08:55)
[2024-06-27] MEDS: Furosemide 40 MG (4 mL) VIAL SLOW IVP SCH (11:31)
[2024-06-27] MEDS: Insulin Glargine 30 UNITS/0.3 ML VIAL SC SCH (20:48)
[2024-06-28 05:12] LABS: Anion Gap 13 mmol/L (10-20); BUN (Urea Nitrogen) 16 mg/dL (9.8-20.1); Calc. Creatinine Clearance 60 mL/min (70-130); Carbon Dioxide 26 mmol/L (23-31); Chloride 107 mmol/L (98-107); Estimated GFR 86; Glucose 162 mg/dL (83-110); Potassium 3.6 mmol/L (3.5-5.1); Sodium 142 mmol/L (136-145)
[2024-06-28] MEDS: Insulin Glargine 30 UNITS/0.3 ML VIAL SC SCH (09:59)
[2024-06-28] MEDS: Folic Acid 1 MG TAB PER TUBE SCH (10:00)
[2024-06-28] MEDS: Multivits W-Minerals Liquid 15 ML UDCUP PER TUBE SCH (11:27)
[2024-06-29 05:20] LABS: #Basophils Less than 0.03 10x3/uL (0.0-0.2); %Basophils 0.1 % (0.0-1.0); %Eosinophils 0.2 % (0.0-10.0); %Lymphocytes 6.6 % (21.0-51.0); %Monocytes 10.1 % (0.0-10.0); %Neutrophils 82.2 % (42.0-75.0); Hematocrit 24.8 % (36.0-47.0); Hemoglobin 7.1 g/dL (12.0-16.0); Mean Corpuscular HGB CONC 28.6 g/dL (32.0-36.0); Mean Corpuscular Hemoglobin 21.9 pg (27.0-31.0); Mean Corpuscular Volume 76.5 fL (78.0-98.0); Mean Platelet Volume 10.9 fL (7.4-10.4); Platelet Count 300 10x3/uL (130-400); RBC Distribution Width 20.6 % (11.5-14.5); Red Blood Cell (RBC) Count 3.24 mill/uL (4.20-5.40)
[2024-06-29 05:51] LABS: Anisocytosis SLIGHT = 6-15 cells HPF (0-5); Hypochromia SLIGHT = 6-15 cells HPF (0-5); Microcytosis SLIGHT = 6-15 cells HPF (0-5); Platelet Adequacy Comment Platelets Normal; Polychromasia SLIGHT = 2-3 cells HPF (0-2)
[2024-06-29 06:10] LABS: Anion Gap 13 mmol/L (10-20); BUN (Urea Nitrogen) 28 mg/dL (9.8-20.1); Calc. Creatinine Clearance 60 mL/min (70-130); Calcium 9.2 mg/dL (7.8-10.44); Carbon Dioxide 26 mmol/L (23-31); Chloride 108 mmol/L (98-107); Estimated GFR 86; Glucose 149 mg/dL (83-110); Potassium 3.5 mmol/L (3.5-5.1); Sodium 143 mmol/L (136-145)
[2024-06-29] MEDS: Ferrous Sulfate 325 MG TAB PO SCH (09:22)
[2024-06-29 12:16] VITALS: BP 105/67; TEMP 97.8
[2024-06-29] MEDS: NIFEdipine 10 MG CAP PER TUBE SCH (14:27)
== END 2024-06-29 17:11 | DRG 64 ==
LOC: ERS 22:46 → CCU 06-20 00:38 → 2SE 06-24 04:32
PROVIDERS: ADMIT Internal Medicine; ATTEND Internal Medicine
PROC: 4A033R1 Measurement of Arterial Saturation, Peripheral, Percutaneous Approach (ICD-10-PCS; 2024-06-19)
PROC: 5A09357 Assistance with Respiratory Ventilation, Less than 24 Consecutive Hours, Continuous Positive Airway Pressure (ICD-10-PCS; 2024-06-20)
PROC: 0DH63UZ Insertion of Feeding Device into Stomach, Percutaneous Approach (ICD-10-PCS; principal; 2024-06-26)
DX: I63.512 Cerebral infarction due to unspecified occlusion or stenosis of left middle cerebral artery (principal); I50.33 Acute on chronic diastolic (congestive) heart failure; J96.01 Acute respiratory failure with hypoxia; G81.91 Hemiplegia, unspecified affecting right dominant side; N17.9 Acute kidney failure, unspecified; N39.0 Urinary tract infection, site not specified; E87.0 Hyperosmolality and hypernatremia; I48.20 Chronic atrial fibrillation, unspecified; R47.01 Aphasia; Z88.5 Allergy status to narcotic agent; Z79.899 Other long term (current) drug therapy; Z79.01 Long term (current) use of anticoagulants; J44.9 Chronic obstructive pulmonary disease, unspecified; E03.9 Hypothyroidism, unspecified; N18.30 Chronic kidney disease, stage 3 unspecified; D63.1 Anemia in chronic kidney disease; Z95.1 Presence of aortocoronary bypass graft; Z98.890 Other specified postprocedural states; Z79.82 Long term (current) use of aspirin; Z51.5 Encounter for palliative care; E11.22 Type 2 diabetes mellitus with diabetic chronic kidney disease; Z66 Do not resuscitate
CPT/HCPCS: 0042T; 36415; 36416; 51702; 70450; 70496; 70498; 70551; 71045; 74018; 74230; 80048; 80053; 80061; 81001; 82728; 82805; 83036; 83540; 83550; 83605; 83735; 83880; 84484; 85025; 87086; 93005; 93010; 93306; 94640; 94660; 96361; 96365; B4087; C9113; J0360; J0696; J1815; J1940; J1956; J2470; J2704; J2919; J3480; J3490; J7070; J7620; Q9967